=== PATIENT | female | born 1960 | race Caucasian/White ===

== ENCOUNTER → 2017-07-15 | Outpatient (CLI) | payer OTHER ==
[~2017-07-15] MED LIST: ACYCLOVIR 400M400 MG PO; ASPIRIN 81MG TA81 MG PO; B-121000 MC1 PO; FISH OIL1000 MG PO; GLUCOSAMINE & C1 CA2 PO; LISINOPRIL5 MG NG; NITROGLYCERIN0.4 M1 SL; OMEPRAZOLE40 MG PO; POLYCARB625 MG OR; PREMARIN 0.60.625 MG PO; PROBIOTIC1 EAC3 PO; SIMVASTATIN40 MG PO; VERAPAMIL HCL360 MG PO; ZYRTEC ALLERGY10 MG PO
--- NOTE | 2017-07-15 13:32 | RADIOLOGY REPORT PS360 ---
BONE DENSITOMETRY(HIP:LT SPINE HISTORY: POST MENOAPAUSAL ORDERING PHYSICIAN: Kojo Benitez MD PATIENT AGE: 57 years COMPARISON: None FINDINGS: The BMD measured at the left femoral neck is 1.044 g/cm squared with a T score of 0.0. This is considered normal according to the World Health Organization criteria. Fracture risk is low. Recommend follow up exam June 2019. IMPRESSION: Normal bone density
--- NOTE | 2017-07-18 11:10 | RADIOLOGY REPORT PS360 ---
DIG MAMM-SCREEN JANETH W/CAD CAD Screening COMPARISON: Digital mammograms 07/16/2015 and 6 month follow-up mammogram left breast 02/07/2016 INDICATION: There is a history of breast cancer patient's aunt diagnosed after menopause. TECHNIQUE: Standard CC and MLO images were obtained. R2 CAD reviewed. FINDINGS: There is a diffusely dense and heterogenic parenchymal pattern somewhat lessening the sensitivity of mammography . The possible asymmetric density upper outer quadrant left breast seen previously is less prominent on the current study. There is faint arterial calcination right breast. There is no suspicious lesion and no suspicious microcalcifications. IMPRESSION: Dense parenchymal pattern with no suspicious lesion seen recommend yearly follow-up BI-RADS CATEGORY: 2_Benign RECOMMENDED FOLLOWUP: 12M 12 MONTH FOLLOW-UP (A letter has been sent to the patient regarding results of the study.)
== END ==
LOC: RAD 09:23
DX: Z12.31 Encounter for screening mammogram for malignant neoplasm of breast (principal); Z78.0 Asymptomatic menopausal state
CPT/HCPCS: G0202